=== PATIENT | male | born 1960 | race Caucasian/White ===

== ENCOUNTER → 2018-07-26 | Outpatient (CLI) | payer BC ==
[2018-07-26 13:36] LABS: BASO % 0.4 % (0.0-2.0); EOS # 0.2 (0.0-0.7); EOS % 1.9 % (0-4.0); GRAN # 6.4 (1.4-6.5); GRAN % 71.1 % (42.2-75.2); HEMOGLOBIN 14.5 g/dl (13.5-18.0); LYMPH # 1.5 (1.2-3.4); LYMPH % 16.7 % (20.0-51.0); MEAN CELL VOLUME 92 fl (80.0-100.0); MEAN CORPUSCULAR HEMOGLOBIN 31 pg (27.0-31.0); MEAN CORPUSCULAR HGB CONC 34 g/dl (33.0-37.0); MONO # 0.9 (0.1-0.6); MONO % 9.5 % (1.7-9.3); PLATELET COUNT 243 K/mm3 (130-400); RED BLOOD COUNT 4.68 M/mm3 (4.20-5.60); REDCELL DISTRIBUTION WIDTH-CV 12.2 % (11.5-14.5)
[2018-07-26 13:56] LABS: CALCIUM 8.9 mg/dL (8.4-10.2); CREATININE, serum 1.35 (0.66-1.25); POTASSIUM 4.7 mmol/L (3.4-5.0)
== END ==
LOC: COL.RAD 13:16
PROVIDERS: Family Medicine
DX: N13.0 Hydronephrosis with ureteropelvic junction obstruction (principal); N28.1 Cyst of kidney, acquired; N28.9 Disorder of kidney and ureter, unspecified; K76.9 Liver disease, unspecified; K57.30 Diverticulosis of large intestine without perforation or abscess without bleeding
CPT/HCPCS: Q9967

== ENCOUNTER → 2018-08-02 | Outpatient (CLI) | payer BC | LOC: COL.RAD 07:34 | DX: N20.1 Calculus of ureter (principal); N28.89 Other specified disorders of kidney and ureter; N28.1 Cyst of kidney, acquired | CPT/HCPCS: Q9967 ==

== ENCOUNTER 2018-09-07 11:00 | Day surgery (SDC) | payer BC ==
[~2018-09-07] VITALS: Ht 177.8 cm; Wt 113.2 kg
[2018-09-07 11:25] VITALS: BP 141/99; PULSE 80; TEMP 98.8
[2018-09-07 14:20] VITALS: TEMP 97.9
[2018-09-07 14:30] VITALS: BP 143/86; PULSE 80
--- NOTE | 2018-09-07 14:30 | NUR ---
TO RM 7 PER OWN WILL STEADY GAIT. ALERT ORIENTED X3, TALKING WITH STAFF.FAMILY NOT HERE AT THIS TIME. RECEIVED WATER AMBULATED TO BATHROOM AND VOIDED. TOLERATED WELL, AFTER RETURNING TO RM STATED HE STILL HAS THE URGE TO URINATE.
[2018-09-07 14:45] VITALS: BP 137/94; PULSE 83
--- NOTE | 2018-09-07 14:45 | NUR ---
RECEIVED MUFFIN AND 2ND CUP WATER. DAUGHTERS AT BEDSIDE.
[2018-09-07 15:00] VITALS: BP 143/82; PULSE 73
--- NOTE | 2018-09-07 15:00 | NUR ---
ATE 100% AND TOLERATED WELL.
[2018-09-07] MEDS ORDERED: NORCO 325 MG-51 TAB PO (15:08)
[2018-09-07] MEDS ORDERED: PYRIDIUM 100MG100 MG PO (15:09)
--- NOTE | 2018-09-07 15:25 | NUR ---
UP TO BATHROOM AND VOIDED AGAIN. RECEIVED DISCHARGE INSTRUCTIONS AND VERBALIZED UNDERSTANDING. DISCONTINUED IV AND INT- CATHETER INTACT. PATIENT GETTING DRESSED
--- NOTE | 2018-09-07 15:30 | NUR ---
DISCHARGED PER WC BY NURSING STAFF TO PRIVATE CAR IN CARE OF DAUGHTER-RUBY
== END 2018-09-07 17:11 | disposition home or self-care (01) ==
LOC: SDCO 11:00
DX: N20.1 Calculus of ureter (principal); N28.1 Cyst of kidney, acquired; N28.89 Other specified disorders of kidney and ureter; Z83.3 Family history of diabetes mellitus; Z85.46 Personal history of malignant neoplasm of prostate
CPT/HCPCS: C1769; C2617; J0690; J1100; J1885; J2405; J2704; J3010; J7120; Q9967